=== PATIENT | female | born 1985 | race Caucasian/White ===

== ENCOUNTER 2016-10-16 11:22 | Emergency (ER) | payer MEDICAID ==
[2016-10-16] MEDS ORDERED: Albuterol/Ipratropium Neb 3 ML AERS HHN ONE ×2 (11:42→13:14)
--- NOTE | 2016-10-16 11:49 | ED Physician Chart ---
Chief Complaint/HPI - Patient Information Date Seen:: 10/16/16 Time Seen:: 11:43 Chief Complaint:: rt ribs pain History of Present Illness:: pt her for pain at rt ribs ...worse w cough or mvt. pt has had a cough x 2 months...was sick then and uri resolved but cough persists. she did have childhood asthma but none since. using motrin for pain cough is rarely prod of sputum at this point...nonbloody. no weight loss or nt sweats. pt denies any risk of being gravid as is single and not sexually active. pt says it is superficially sore over rt ribs. hurts to wear her bra. Allergies:: Allergies Allergy/AdvReac Type Severity Reaction Status Date / Time Sulfa (Sulfonamide Allergy Verified 10/16/16 11:30 Antibiotics) sulfamethoxazole Allergy Verified 10/16/16 11:30 [From Bactrim] trimethoprim [From Bactrim] Allergy Verified 10/16/16 11:30 Vitals:: Vital Signs - 8 hr 10/16/16 11:31 Temp 98.4 F HR 73 RR 16 BP 152/93 O2 Sat % 94 Historian:: Patient Review of Systems - Review of Systems General/Constitutional: No fever, No chills, No weight loss, No weakness, No diaphoresis, No edema, No loss of appetite Skin: No skin lesions, No rash, No bruising Head: No headache, No light-headedness Eyes: No loss of vision, No pain, No diplopia ENT: No earache, No nasal drainage, No sore throat, No tinnitus Neck: No neck pain, No swelling, No thyromegaly, No stiffness, No mass noted Cardio Vascular: Chest pain (rt ribs), No chest pain, No palpitations, No PND, No orthopnea, No edema Pulmonary: No SOB, Cough, No sputum, No wheezing GI: No nausea, No vomiting, No diarrhea, No pain, No melena, No hematochezia, No constipation, No hematemesis G/U: No dysuria, No frequency, No hematuria Musculoskeletal: No bone or joint pain, No back pain, No muscle pain Endocrine: No polyuria, No polydipsia Psychiatric: No prior psych history, No depression, No anxiety, No suicidal ideation Hematopoietic: No bruising, No lymphadenopathy Allergic/Immuno: No urticaria, No angioedema Neurological: No syncope, No focal symptoms, No weakness, No paresthesia, No headache, No seizure, No dizziness, No confusion, No vertigo Past Medical History - Past Medical History Past Medical History: Other (eczema) Social History: Smoker Medication: None Family Medical History - Family Member Mother Living Status: Still Living Other Medical History: no medical prob. Physical Exam - Physical Examination General/Constitutional: Awake, Well-developed, well-nourished, Alert, No distress, GCS 15, Non-toxic appearing, Ambulatory Head: Atraumatic Eyes: Lids, conjuctiva normal, PERRL, EOMI Skin: Nl inspection, No rash, No skin lesions, No ecchymosis, Well hydrated, No lymphadenopathy ENMT: External ears, nose nl, Nasal exam nl, Lips, teeth, gums nl Neck: Nontender, Full ROM w/o pain, No JVD, No nuchal rigidity, No bruit, No mass, No stridor Respiratory: Nl effort/Exclusion, Clear to Auscultation, No Wheeze/Rhonchi/Rales Other Respiratory comments:: rt side ribs soreness..not focal point tndrenss. mild congestion. no sob. Cardio Vascular: RRR, No murmur, gallop, rubs, NL S1 S2 GI: No tenderness/rebounding/guarding, No organomegaly, No hernia, Normal BS's, Nondistended, No mass/bruits, No McBurney tenderness : No CVA tenderness Extremities: No tenderness or effusion, Full ROM, normal strength in all extremities, No edema, Normal digits & nails Other Extremities comments:: no leg tndrness, no homans sx. no edema. good pulses. Neuro/Psych: Alert/oriented, DTR's symmetric, Normal sensory exam, Normal motor strength, Judgement/insight normal, Mood normal, Normal gait, No focal deficits Misc: normal gait, Normal back, No paraspinal tenderness Labs/Radiology/EKG Results - Radiology Results Results: cxr no ptx, no rib fx, no pneumonia. - EKG Interpretations EKG Time:: 13:10 Rate & Rhythm: nsr 69 wnl [place]: 23 Intervals: qtc 442 Comments:: overall nrml, no injury pattern ED Septic Shock - . Is Septic Shock (SBP<90, OR Lactate>4 mmol\L) present?: No - <6hrs of presentation: Vital Signs: Vital Signs - 8 hr 10/16/16 11:31 Temp 98.4 F HR 73 RR 16 BP 152/93 O2 Sat % 94 Reassessment (Disposition) - Reassessment Reassessment Condition:: Improved - Diagnosis Diagnosis:: rt rib chostochondritis related to reactive airway dz /persistent cough s/p uri month ago. - Aftercare/Follow up Instructions Aftercare/Follow-Up Instructions:: Counseled pt regarding lab results/diagnosis & need follow up - Patient Disposition Discharge/Transfer:: Home Condition at Disposition:: Improved
--- NOTE | 2016-10-16 12:50 | Diagnostic Imaging Report ---
CHEST X-RAY: AP view INDICATION: Pain, cough COMPARISON: None FINDINGS: Increased interstitial lung markings are noted There is no focal consolidation or pleural effusions The heart is normal in size. The osseous structures demonstrate no acute abnormalities. There is mild scoliosis. No evidence of a pneumothorax. IMPRESSION: Interval increase in interstitial lung markings, nonspecific. No focal consolidation identified. No evidence of pneumothorax.
--- NOTE | 2016-10-16 12:52 | Diagnostic Imaging Report ---
Right rib limited 2 views Indication: Pain and cough for one month Comparison: Chest x-ray the same may Findings: No evidence of right rib fracture. No evidence of pneumothorax. No focal consolidation pleural effusions. Impression: No evidence of an acute fracture. No focal consolidation identified. In the setting of trauma, if clinical symptoms persist and there is continued concern for an occult fracture, follow up exams in 5-7 days is suggested.
== END 2016-10-16 13:44 | disposition home or self-care (01) ==
LOC: ER 11:22
DX: M94.0 Chondrocostal junction syndrome [Tietze] (principal); F17.200 Nicotine dependence, unspecified, uncomplicated; Z88.1 Allergy status to other antibiotic agents; Z88.2 Allergy status to sulfonamides
CPT/HCPCS: 71010-TC; 71101-TC-RT; 81025-TC; 93005; 94640; Z7502